=== PATIENT | female | born 1985 | race Caucasian/White ===

== ENCOUNTER 2022-07-19 21:31 | Emergency (ER) | payer BC ==
[2022-07-19] MEDS ORDERED: methylPREDNISolone Sodium Succinate 125 MG/2 ML SDV IVPUSH ONE (22:14)
[2022-07-19] MEDS ORDERED: Famotidine 20 MG/2 ML SDV IVPUSH ONE (22:14)
== END 2022-07-19 23:21 | disposition home or self-care (01) ==
LOC: JD.ED 21:31
DX: T78.40XA Allergy, unspecified, initial encounter (principal); Z88.0 Allergy status to penicillin; Z88.1 Allergy status to other antibiotic agents; Z91.018 Allergy to other foods; Z91.010 Allergy to peanuts
CPT/HCPCS: 96374; 96375; 99283; J2930; J3490; 99282